=== PATIENT | male | born 1955 | race Caucasian/White ===

== ENCOUNTER 2017-02-22 08:06 | Day surgery (SDC) | payer OTHER ==
[~2017-02-22] VITALS: Ht 180.3 cm; Wt 118.1 kg
[2017-02-22] VITALS (9 sets, daily range): BP systolic 126–135; BP diastolic 63–91; PULSE 78–90; RESP 16–18; TEMP 97.3–98.2; O2SAT 94–96
[2017-02-22] MEDS ORDERED: NS 1000 ML IV SCH (08:30)
[2017-02-22] MEDS ORDERED: CHLORHEXIDINE GLUCONATE 2 % 1 PACK (2 CLOTHS) TOPICAL SCH (08:30)
[2017-02-22] MEDS ORDERED: ceFAZolin 2 GM PREMIX 50 ML IV SCH (08:30)
[2017-02-22] MEDS ORDERED: MUPIROCIN 2% OINT 1 APPLIC/GM SYR NASAL SCH (08:30)
[2017-02-22] MEDS ORDERED: POVIDONE IODINE 5% (ANTISEPSIS KIT) 4 APPLICATIONS EACH NARE SCH (08:30)
[2017-02-22] MEDS ORDERED: LORazepam 1 MG TAB SL SCH (08:30)
[2017-02-22] MEDS ORDERED: VANCOMYCIN 1000 MG/NS 250 ML IV SCH ×2 (08:30)
[2017-02-22 08:43] LABS: AUTOMATED NEUTROPHIL # 4.5 TH/MM3 (1.8-7.7); BASOPHIL # 0.1 TH/MM3 (0-0.2); BASOPHIL % 0.8 % (0.0-2.0); EOSINOPHIL # 0.3 TH/MM3 (0-0.4); EOSINOPHIL % 3.7 % (0.0-4.0); HEMATOCRIT 40.7 % (39.0-51.0); HEMO FLAGS DIFF FINAL; LYMPH % 34.6 % (9.0-44.0); LYMPHOCYTE # 2.8 TH/MM3 (1.0-4.8); MEAN CELL VOLUME 88.7 FL (80.0-100.0); MEAN CORPUSCULAR HEMOGLOBIN 29.6 PG (27.0-34.0); MEAN CORPUSCULAR HGB CONC 33.4 % (32.0-36.0); MONO % 6.1 % (0.0-8.0); NEUT % 54.8 % (16.0-70.0); PLATELET COUNT 218 TH/MM3 (150-450); RED BLOOD COUNT 4.59 MIL/MM3 (4.50-5.90); RED CELL DISTRIBUTION WIDTH 14.3 % (11.6-17.2); WHITE BLOOD COUNT 8.1 TH/MM3 (4.0-11.0)
[2017-02-22] MEDS ORDERED: SODIUM CHLORID 0.9% 500 ML IV PRN (08:45)
[2017-02-22] MEDS ORDERED: LACTATED RINGER'S 1000 ML IV PRN (08:45)
[2017-02-22] MEDS ORDERED: INSULIN HUMAN REGULAR 1,000 UNITS/10 ML VIAL SQ PRN (08:45)
[2017-02-22] MEDS ORDERED: CHLORHEXIDINE GLUCONATE 2 % 1 PACK (2 CLOTHS) TOPICAL PRN (08:45)
[2017-02-22] MEDS ORDERED: POVIDONE IODINE 5% (ANTISEPSIS KIT) 4 APPLICATIONS EACH NARE PRN (08:45)
[2017-02-22] MEDS ORDERED: METOPROLOL TARTRATE 25 MG TAB PO PRN (08:45)
[2017-02-22] MEDS ORDERED: CLOP75TA PO (08:53)
[2017-02-22] MEDS ORDERED: LORA1TAB12 PO (08:53)
[2017-02-22] MEDS ORDERED: CARV12.52 PO (08:53)
[2017-02-22] MEDS ORDERED: EZET1TAB8 PO (08:53)
[2017-02-22] MEDS ORDERED: LISI-515 PO (08:53)
[2017-02-22] MEDS ORDERED: GENT5TAB PO (08:53)
[2017-02-22] MEDS ORDERED: IPRA17I INH (08:53)
[2017-02-22] MEDS ORDERED: ASPI325T PO (08:53)
[2017-02-22] MEDS ORDERED: BUPR300T PO (08:53)
[2017-02-22] MEDS ORDERED: ATOR1TAB18 PO (08:53)
[2017-02-22 08:54] LABS: PROTHROMBIN TIME - PATIENT 10.7 SEC (9.8-11.6)
[2017-02-22] MEDS ORDERED: ZOLP10TA3 PO (08:56)
[2017-02-22] MEDS ORDERED: SACU1TAB PO (08:56)
[2017-02-22] MEDS ORDERED: ALBUAER3 INH (08:56)
[2017-02-22] MEDS ORDERED: VITATAB43 PO (08:56)
[2017-02-22] MEDS ORDERED: VITATAB11 PO (08:56)
[2017-02-22] MEDS ORDERED: VENL75TA2 PO (08:56)
[2017-02-22] MEDS ORDERED: RA BTAB (08:56)
[2017-02-22] MEDS ORDERED: VENL150C39 PO (08:56)
[2017-02-22 09:01] LABS: BICARBONATE 27.2 MEQ/L (21.0-32.0); POTASSIUM 4.1 MEQ/L (3.5-5.1)
[2017-02-22] MEDS ORDERED: PROPOFOL 200 MG/20 ML AMP ONE ×3 (14:07→15:49)
[2017-02-22] MEDS ORDERED: MIDAZOLAM HCL 2 MG/2 ML VIAL ONE (14:07)
[2017-02-22] MEDS ORDERED: LIDOCAINE HCL 2% 50 ML VIAL ONE (14:08)
[2017-02-22] MEDS ORDERED: HEPARIN-NS/PF INJ 1,000 ML ONE (14:08)
[2017-02-22] MEDS ORDERED: VANCOMYCIN 500 MG VIAL ONE (14:08)
[2017-02-22] MEDS ORDERED: ISOPROTERENOL HCL 1 MG/5 ML AMP ONE (14:09)
--- NOTE | 2017-02-22 14:58 | CATHPROC ---
[facility] HIS Report Study Information Study Number Admission Scheduled Start Study Start [id number] Feb 22 2017 8:06AM 02/22/2017 Feb 22 2017 1:00PM Thermal Service Cardiac Pacer/ICD Admit Source Facility Department Other [facility] - [facility] Hand Physician and Clinical Staff Initial Humphrey Damon Medical Coder Brandie Correia,RT(R) TECH2 Other Anesthesia, ORCHID HAND Recorder Yessenia Heck,Jos Laird,RT(R) Equipment Time Linseed Oil Order Filler Description Size Mfg Part Number Used/Scraped [id number] 14:37 [employer] MEDICAL CATHETER, JSN, QUAD FR 5 Used *[id number] 14:37 [employer] MEDICAL CATHETER, JSN, QUAD FR 5 Used *[id number] 14:37 [employer] MEDICAL CATHETER, JSN, QUAD FR 5 Used *[id number] 14:37 [employer] MEDICAL CATHETER, JSN, QUAD FR 5 Used *[id number] 14:37 [employer] MEDICAL SHEATH, EPS, FR5 FAST CATH FR 5 Used *[id number] [id number] 14:37 [employer] MEDICAL SHEATH, EPS, FR5 FAST CATH FR 5 Used *[id number] [id number] 14:37 [employer] MEDICAL SHEATH, EPS, FR5 FAST CATH FR 5 Used *[id number] [id number] 14:37 [employer] MEDICAL SHEATH, EPS, FR6 FAST CATH FR 6 Used *[id number] History: Allergies Allergy Reaction No Known Allergies History: Risk Factors Hypertension Dyslipidemia Previous OR Previous Heart Failure Yes Yes Yes Yes Prior CABG Yes Chronic Lung Disease Yes Labs Hgb (g/dl) Hct (%) RBC (MIL/MM3) WBC (l/cumm) Platelets (thousands) 11.60-17.00 35.00-51.00 4.00-5.90 4.00-11.00 150.00-450.00 13.0 40 4.5 8.1 218 Glucose (mg/dl) 74.00-106.00 170 Na (meq/l) K (meq/l) 136.00-145.00 3.50-5.10 139 4.1 INR (PTT:PT) 0.90-1.10 1 Medication Medication Total Dose (Bolus/Oral) Medication Total Dosage/Unit 1% XYLOCAINE 20 mL Medications (Bolus/Oral) Medication Time Given Dosage/Unit Administered By Reason 1% XYLOCAINE 02/22/2017 2:38:00 PM 20 mL Humphrey Toney 20 mL 1% XYLOCAINE given in lab by Humphrey Toney in Right Groin via Subcutaneous. Medication (Drip) Medication Time Given Dosage/Unit Concentration/Unit Diluent (ml) Solution ANCEF 02/22/2017 2:02:53 PM 2 g 2 g ANCEF given in lab by Yessenia Heck RN in Left Hand via Peripheral IV. Ordered by Yohan Toney. Reason: As per physicians verbal order. VANCOMYCIN DRIP 02/22/2017 2:02:54 PM 1 g 1 g VANCOMYCIN DRIP given in lab by Yessenia Heck RN in Left Hand via Peripheral IV. Ordered by Humphrey Mora. Reason: As per physicians verbal order. Initial Case Assessment Cardiovascular HR Rhythm NIBP Chest Pain 77 sr 124/81 0 Edema Present Skin color Skin None Normal Warm Dry Circulatory - Right Pulses Dorsalis Pedis Radial 2 2 Scale (0,1,2,3,4,d) Circulatory - Left Pulses Dorsalis Pedis Radial 2 2 Scale (0,1,2,3,4,d) Circulatory - Lower Extremities Color Lower Right Color Lower Left Normal Normal Neurological State Oriented to time-place- Alert Moves all extremities person Respiration - General Respiration Rate SpO2 (%) (B/min) 20 100 Chronological Log Time Study Chronological Log 13:35:48 Patient arrived via Bed. 13:35:49 Patient Name, D.O.B, / Armband Verified By R.N. 13:35:51 Consent signed by the physician and the patient and verified by the [facility] staff. 13:35:53 Pre-op and post- op instructions given; patient acknowledges understanding of instructions. 13:35:55 Verbal Stimulation=2 Physical Stimulation=2 Airway=2 Respiration=2 TOTAL=8. (0=absent, 1=li mited, 2=present) 13:36:07 Patient has been NPO for More than 6Hrs. 13:36:12 Skin Breakdown- none per pt 13:38:19 Patient Warmer Placed on the Table. 13:38:33 Disposable Defibrillator Pads Placed On Patient. 13:38:36 Eder Prominences Protected 13:39:03 History and physical on the chart or being dictated. 13:48:39 A # 20 IV was noted in the Antecubital (right). Grade = 0 0.9ns kvo 13:48:43 A # 20 IV was noted in the Hand (left). Grade = 0 0.9ns kvo 13:49:48 Table restraints applied according to hospital policy 14:00:38 Anesthesia at bedside. Assumes care of patient. Lazarus 2 g ANCEF given in lab by Yessenia Heck RN in Left Hand via Peripheral IV. Ordered by Humphrey Toney. Reason: As 14:02:53 per physicians verbal order. 1 g VANCOMYCIN DRIP given in lab by Yessenia Heck, JASON in Left Hand via Peripheral IV. Ordere d by Humphrey Toney. 14:02:54 Reason: As per physicians verbal order. Assessment: Initial Case, HR=77 BPM, Rhythm=sr, TAMN=233/81 mmhg, Chest Pain=0, Edema=None, Col or=Normal, Skin = Warm, Dry Right Pulses: Shola Ped=2, Radial=2 Left Pulses: Shola Ped=2, Radial=2 14:15:09 Lower Right Extremities: Color=Normal Lower Left Extremities: Color=Normal Neurological: State=Alert, Ox3, DOUGLAS Respiration: Resp=20 B/min, SuK2=438 % 14:20:02 Bilateral groins prepped with 2% chlorhexidine, and with a 3 min. waiting time. 14:24:56 MD paged 14:28:11 Reference ECG taken 14:32:45 MD arrived. Time Out. Correct patient, procedure, procedure equipment, site and side verified with physicia n present. Time 14:37:27 concurred by MD, individual staff and ORCHID HAND. Time Out #2 - Consents verified, patient in correct position, all results are labled and displa yed, safety precautions 14:37:45 taken, antibiotics administered. Time out concurred by MD, individual staff and ORCHID HAND in procedu re 14:37:59 Case Start 14:38:00 20 mL 1% XYLOCAINE given in lab by Humphrey Toney in Right Groin via Subcutaneous. 14:38:44 Vascular access was obtained in the Fem Vein (right). 14:38:46 Vascular access was obtained in the Fem Vein (right). 14:38:50 Vascular access was obtained in the Fem Vein (right). 14:38:53 Vascular access was obtained in the Fem Vein (right). 14:39:30 A SHEATH, EPS, FR5 FAST CATH FR 5 was advanced into the Fem Vein (right) using the Modified Seldinger technique. 14:39:37 A SHEATH, EPS, FR5 FAST CATH FR 5 was advanced into the Fem Vein (right) using the Modified Seldinger technique. 14:39:41 A SHEATH, EPS, FR5 FAST CATH FR 5 was advanced into the Fem Vein (right) using the Modified Seldinger technique. 14:39:47 A SHEATH, EPS, FR6 FAST CATH FR 6 was advanced into the Fem Vein (right) using the Modified Seldinger technique. A CATHETER, JSN, QUAD FR 5 was advanced vis Fem Vein (right) and placed in the CS. Placement wa s visually 14:41:51 confirmed under fluoroscopy. A CATHETER, JSN, QUAD FR 5 was advanced vis Fem Vein (right) and placed in the HIS. Placement w as visually 14:42:08 confirmed under fluoroscopy. A CATHETER, JSN, QUAD FR 5 was advanced vis Fem Vein (right) and placed in the RVA. Placement w as visually 14:42:12 confirmed under fluoroscopy. A CATHETER, JSN, QUAD FR 5 was advanced vis Fem Vein (right) and placed in the HRA. Placement w as visually 14:42:17 confirmed under fluoroscopy. 14:44:39 EPS in progress. 14:56:53 EPS complete. 14:57:14 Catheters removed without difficulty. 14:57:32 Sheath(s) left in place, secured, 0.9ns kvo connected and will be removed in Holding Area 14:57:56 Case End 14:57:58 No case complications noted. 14:57:59 Cine recording checked. 14:58:13 Initial procedure has been completed. Beginning additional procedure. 14:58:14 NOTE: This patient is undergoing an additional procedure while still in the Cardiac Cath La b. End Study - Contrast Media Used In Study Contrast Total Opened (mL) Total Used (mL) Total Wasted (mL) Unspecified 0 0 0 End Study - Radiation Exposure Fluoro Time (minutes) 1.8 End Study - Patient Disposition Complications Transferred To Interventional Outcome No [facility] C[facility] Hand Holding successful
--- NOTE | 2017-02-22 16:42 | CATHPROC ---
[facility] HIS Report Study Information Study Number Admission Scheduled Start Study Start [id number] Feb 22 2017 8:06AM 02/22/2017 Feb 22 2017 2:59PM [place] Service Electrophysiology Study Admit Source Facility Department Other [facility] - Sewer Pipe Layer Physician and Clinical Staff Initial Humphrey Damon Wirer Maintenance Jos Durbin,RT(R) Other Anesthesia, HULL DRAFTER Recorder Yessenia Heck,JASON Scrub Brandie Correia,RT(R) TECH2 Procedures Performed Procedure Location (Site) Vessel Name Lead Insertion Venogram Subclav. Vein (Lft Subclavian Vein Wire insertion Subclav. Vein (Lft Subclavian Vein Equipment Time Geodetic Computator Description Size Mfg Part Number Used/Scraped WIRE, GUIDE AMPLATZ STIFF [id number] 16:06 COOK/PACER 3MMJ Used 180CM *[id number] DERMABOND, ADHESIVE SKIN [id number] 15:02 CORDIS/PACER * Used GLUE MINI *[id number] WIRE, HYDROSTEER 150CM [id number] 15:51 DAIG/[employer]. J[employer] MEDICAL 150CM Used ANGLED GLIDE *[id number] ENDOVASCULAR CATHETER, FR5 TRAILBLAZER [id number] 16:12 90CM Used COMPANY .035 *[id number] TP-1103 15:02 Revelation SUTURE, STRIP PLUS 1/2" * Used *[id number] 15:02 Real Time Translation PACER ENRIQUE, LIMB * 2530 *[id number] Used [id number] 15:02 Real Time Translation PACER PACK, PACER CUSTOM * Used *[id number] 15:04 Playrific PACER SAFE SHEATH, FR9, 13CM FR 9 [id number] Used 15:16 Needle Sponge Count 2 22 Used 15:16 Needle Sponge Count 20 200 Used 15:16 Needle Sponge Count 3 3 Used 16:39 Needle Sponge Count 4 4 Used 16:39 Needle Sponge Count 4 4 Used 16:39 Needle Sponge Count 4 4 Used 15:46 NYCOMED OMNIPAQUE, 300 MG, 50ML 50ML [id number] Used 15:54 NYCOMED OMNIPAQUE, 300 MG, 50ML 50ML [id number] Used SUTURE, 0 ETHIBOND [CT1] (CX21D), 8pk SUTURE, 2-0 VICRYL [CT1] (COP400P) SUTURE, 2-0 VICRYL [CT1] (NTJ331S) [id number] 15:02 BETHEA [employer] BLANKET,WARM AIR CCL * Used *[id number] MedAdherence LASER SHEATH KIT 500-301 15:59 Spectranetics 50CM Used FR12 *[id number] 710587 15:51 [employer] MEDICAL SHEATH, EPS, FR5 FAST CATH FR 5 Used *[id number] [facility] PAD, ELECTROSURGICAL 15:02 * [id number] *[id number] Used SURGICAL GROUNDING ORANGE 16:22 VITATRON MEDTRONIC DEFIBRILLATOR, VISIA AF MRI VR [id number] [id number] Used LEAD, SPRINT QUATTRO SECURE [id number] 16:13 VITATRON MEDTRONIC 62CM Used S 62CM *[id number] 16:06 VITATRON MEDTRONIC SAFE SHEATH, LONG, FR9, 23CM FR 9 [id number] Used [id number] 15:02 [employer] CMOS Sensors MAYELIN. ELECTRODE, PRO-PADZ BIPHASIC * Used *[id number] Equipment Model, Serial, Lot Number and Expiration Data Description Model Number Serial Number Lot Number Expiration Date DEFIBRILLATOR, VISIA AF MRI VR [id number] 05-26-2018 LEAD, SPRINT QUATTRO SECURE S [id number] 11-03-2018 62CM SAFE SHEATH, LONG, FR9, 23CM [id number] 04-29-2018 WIRE, GUIDE AMPLATZ STIFF [id number] 12-28-2021 180CM WIRE, HYDROSTEER 150CM [id number] 11-26-2018 ANGLED GLIDE History: Allergies Allergy Reaction No Known Allergies Medication Medication Total Dose (Bolus/Oral) Medication Total Dosage/Unit 2% XYLOCAINE 50 mL Medications (Bolus/Oral) Medication Time Given Dosage/Unit Administered By Reason 2% XYLOCAINE 02/22/2017 3:40:49 PM 50 mL Humphrey Toney 50 mL 2% XYLOCAINE given in lab by Humphrey Toney in Left upper chestvia Subcutaneous. Final Case Assessment Cardiovascular HR Rhythm NIBP Chest Pain 90 sr 136/68 0 Edema Present Skin color Skin None Normal Warm Dry Circulatory - Right Pulses Dorsalis Pedis 3 Scale (0,1,2,3,4,d) Circulatory - Left Pulses Dorsalis Pedis 3 Scale (0,1,2,3,4,d) Circulatory - Lower Extremities Color Lower Right Color Lower Left Normal Normal Neurological State Oriented to time-place- Lethargic Moves all extremities person Respiration - General Respiration Rate SpO2 (%) O2 (lpm) (B/min) 18 92 6 Chronological Log Time Study Chronological Log 14:58:56 NOTE: This patient is undergoing an additional procedure while still in the Cardiac Cath La b. 14:59:00 Anesthesia remains at bedside. Assuming care of patient. 14:59:13 2% CHLORHEXIDINE GLUCONATE WASH AND NASAL SWIPE DONE PRIOR TO PROCEDURE. 14:59:17 Bovie ground pad applied to: right thigh 14:59:33 Upper Chest Prepped Times Two. 15:15:21 Reference ECG taken First Sponge And Instrument Count Done by Jos Durbin, RT(R). 15:15:31 Hypo's: 4, Sponges: 20, Bovie/scratch: 2 Sutures: 10, Blades: 1, Instruments: 26, Syveck Patches: 0 15:28:35 MD paged 15:29:40 MD responded 15:37:06 MD arrived. Time Out. Correct patient, procedure, procedure equipment, site and side verified with physicia n present. Time 15:40:00 concurred by MD, individual staff and HULL DRAFTER. Time Out #2 - Consents verified, patient in correct position, all results are labled and displa yed, safety precautions 15:40:21 taken, antibiotics administered. Time out concurred by MD, individual staff and HULL DRAFTER in procedu re 15:40:45 Case Start 15:40:49 50 mL 2% XYLOCAINE given in lab by Humphrey Toney in Left upper chestvia Subcutaneous. 15:42:15 Vascular access was obtained in the Subclav. Vein (Lft. 15:45:12 The Subclav. Vein (Lft was manually injected with 10 cc's of contrast. OMNIPAQUE, 300 MG, 5 0ML 50ML used. 15:49:00 Vascular access was obtained in the Subclav. Vein (Lft. 15:49:56 Wire inserted 15:53:32 A SHEATH, EPS, FR5 FAST CATH FR 5 was advanced into the Subclav. Vein (Lft using the Modifi ed Seldinger technique. 15:53:51 The Subclav. Vein (Lft was manually injected with 10 cc's of contrast. OMNIPAQUE, 300 MG, 5 0ML 50ML used. 15:55:11 The previous wire was exchanged for a WIRE, HYDROSTEER 150CM ANGLED GLIDE 150CM. 16:04:07 Amplatz in through trailblazer 16:04:08 A CATHETER, FR5 TRAILBLAZER .035 90CM was advanced over a wire. 16:04:47 A WIRE, GUIDE AMPLATZ STIFF 180CM 3MMJ was inserted via Subclav. Vein (Lft. 16:06:00 A SAFE SHEATH, LONG, FR9, 23CM FR 9 was advanced into the Subclav. Vein (Lft using the Perc utaneous technique. 16:06:27 Surgical Incision Made. 16:10:03 A pocket was created at the L Upper Chest. A SAFE SHEATH, LONG, FR9, 23CM FR 9 was advanced into the Subclav. Vein (Lft using the Modified Seldinger 16:10:12 technique. 16:13:05 A LEAD, SPRINT QUATTRO SECURE S 62CM 62CM was inserted and positioned in the RV. 16:21:00 Pocket flushed with antibiotic solution 16:22:02 A DEFIBRILLATOR, VISIA AF MRI VR VVEVVIR was connected and placed in the pocket. Second Sponge And Instrument Count Done by Jos Durbin RT(R). 16:25:50 Hypo's: 3, Sponges: 20, Bovie/scratch: 2 Sutures: 10, Blades: 1, Instruments: 26, Syveck Patches: 0 16:31:00 The DFT was ~RESULT~ at ~JOULES~ Joules, ~OHMS~ Ohms lead impedance and ~TIME~ ms charge ti me. Final Sponge And Instrument Count Done by Jos Durbin RT(R). 16:31:22 Hypo's: 3, Sponges: 20, Bovie/scratch: 2 Sutures: 10, Blades: 1, Instruments: 26, Syveck Patches: 0 16:32:00 The pocket was closed. 16:33:43 Implant Procedure was performed. 16:33:47 A ICD Implant . (Single) 16:37:57 Case End 16:39:01 Steri-strips and a sterile dressing applied to site. 16:39:08 No case complications noted. 16:39:09 Cine recording checked. 16:39:32 CICU called. Spoke to Cesia 16:39:56 Bedside Report will be given. 16:40:03 Defibrillator and ground pads removed. Skin intact. Assessment: Final Case, HR=90 BPM, Rhythm=sr, ZETG=943/68 mmhg, Chest Pain=0, Edema=None, Color =Normal, Skin = Warm, Dry Right Pulses: Shola Ped=3 Left Pulses: Shola Ped=3 16:40:13 Lower Right Extremities: Color=Normal Lower Left Extremities: Color=Normal Neurological: State=Lethargic, Ox3, DOUGLAS Respiration: Resp=18 B/min, SpO2=92 %, O2=6 lpm 16:47:17 Sheath(s) left in place, secured, 0.9ns kvo connected and will be removed in Holding Area 16:50:00 Patient moved to stretcher 16:51:36 A sling was placed on the affected arm. End Study - Contrast Media Used In Study Contrast Total Opened (mL) Total Used (mL) Total Wasted (mL) Omnipaque 100 40 60 End Study - Radiation Exposure Fluoro Time (minutes) 16.3 End Study - Patient Disposition Complications Transferred To Interventional Outcome No Telemetry Bed successful
[2017-02-22] MEDS ORDERED: ATROPINE SULFATE 1 MG/10 ML SYRINGE ONE (17:13)
[2017-02-22] MEDS ORDERED: ONDANSETRON HCL 4 MG/2 ML VIAL IV PUSH PRN (18:00)
[2017-02-22] MEDS ORDERED: BACITRACIN OINT 0.9 GM PKT TOP ONE (18:00)
[2017-02-22] MEDS ORDERED: SODIUM CHLOR 0.9% 250 ML INJ 250 ML IV PRN (18:00)
[2017-02-22] MEDS ORDERED: LIDOCAINE HCL 1% 50 ML VIAL INFIL PRN (18:00)
[2017-02-22] MEDS ORDERED: METOCLOPRAMIDE HCL 10 MG/2 ML VIAL IV PUSH PRN (18:00)
[2017-02-22] MEDS ORDERED: ATROPINE SULFATE 1 MG/ML VIAL IV PUSH PRN (18:00)
[2017-02-22] MEDS ORDERED: LORazepam 2 MG/ML VIAL IV PUSH PRN (18:00)
[2017-02-22] MEDS: oxyCODONE/ACETAMINOPHEN 5 MG/325 MG TAB PO PRN ×3 (18:28→23:41)
--- NOTE | 2017-02-22 18:53 | RADRPT ---
EXAM DATE/TIME: 02/22/2017 18:24 [place] COMPARISON: No previous studies available for comparison. INDICATIONS : Post op pacemaker. MEDICAL HISTORY : Chronic obstructive pulmonary disease. Hepatitis A. Hypertension. SURGICAL HISTORY : CABG. ENCOUNTER: Initial ACUITY: 1 day PAIN SCORE: 4/10 LOCATION: Bilateral chest FINDINGS: Trace atelectasis seen of the bases. No significant effusion demonstrated. No pneumothorax. Heart size upper limits of normal. Patient has had previous median sternotomy. There is a cardiac pac er. CONCLUSION: Trace basilar atelectasis. Emigdio Terrell MD on February 22, 2017 at 18:51 Board Certified Radiologist. This report was verified electronically.
[2017-02-22] MEDS: ceFAZolin 2 GM PREMIX 50 ML IV SCH (19:56)
[2017-02-22] MEDS ORDERED: ZOLPIDEM TARTRATE 10 MG TAB PO PRN (21:45)
[2017-02-22] MEDS ORDERED: LORazepam 1 MG TAB PO PRN (21:45)
[2017-02-23] VITALS (12 sets, daily range): BP systolic 128–146; BP diastolic 70–88; PULSE 79–96; RESP 12–18; TEMP 96.4–97.8; O2SAT 90–94
[2017-02-23] MEDS: ceFAZolin 2 GM PREMIX 50 ML IV SCH ×2 (02:14→10:39)
[2017-02-23] MEDS: oxyCODONE/ACETAMINOPHEN 5 MG/325 MG TAB PO PRN ×2 (06:19→10:51)
[2017-02-23] MEDS ORDERED: CEPH-460 PO (08:00)
--- NOTE | 2017-02-23 08:08 | PD.CARD.PN ---
Subjective Subjective Remarks Feels okay. Objective Medications Current Medications Medications (Trade) Dose Ordered Sig/Pranay Route Start Time Stop Time Status Last Admin (Ativan) 1 mg OVEN UNLOADER SL 02/22/17 08:30 02/25/17 08:29 (Betadine 5% Antisepsis Kit) 2 applic OVEN UNLOADER EACH NARE 02/22/17 08:30 02/25/17 08:29 (Percocet 5-325 Mg) 1 tab Q4H PRN PO 02/22/17 18:00 02/22/17 23:41 (Percocet 5-325 Mg) 2 tab Q4H PRN PO 02/22/17 18:00 02/23/17 06:19 (Ativan Inj) 0.5 mg UNSCH PRN IV PUSH 02/22/17 18:00 02/23/17 17:59 (Atropine Inj) 0.5 mg UNSCH PRN IV PUSH 02/22/17 18:00 Sodium Chloride 250 ml @ 500 mls/hr ONCE PRN IV 02/22/17 18:00 02/23/17 17:59 (Reglan Inj) 10 mg Q4H PRN IV PUSH 02/22/17 18:00 (Zofran Inj) 4 mg Q4H PRN IV PUSH 02/22/17 18:00 (Xylocaine 1% Inj (50 ml)) 10 ml UNSCH PRN INFIL 02/22/17 18:00 02/23/17 17:59 Cefazolin Sodium/ Dextrose 50 ml @ 100 mls/hr Q8H IV 02/22/17 18:00 02/23/17 10:29 02/23/17 02:14 (Pneumovax-23 Inj) 25 mcg ONCE ONCE IM 02/24/17 10:00 02/24/17 10:01 (Flu (Quadrivalent) Vaccine Inj) 0.5 ml ONCE ONCE IM 02/24/17 10:00 02/24/17 10:01 (Ativan) 1 mg BID PRN PO 02/22/17 21:45 02/22/17 22:09 (Ambien) 10 mg HS PRN PO 02/22/17 21:45 02/22/17 22:09 Vital Signs / I&O Vital Signs Date Time Temp Pulse Resp B/P (MAP) Pulse Ox O2 Delivery O2 Flow Rate FiO2 02/23/17 06:00 88 02/23/17 05:20 87 02/23/17 04:38 96 02/23/17 03:22 85 02/23/17 03:22 97.6 83 18 146/81 (102) 94 02/23/17 02:01 86 02/23/17 01:01 88 02/23/17 00:00 89 02/22/17 23:00 98.0 84 18 133/63 (86) 94 02/22/17 23:00 90 02/22/17 22:00 86 02/22/17 21:00 84 02/22/17 20:00 82 02/22/17 19:50 82 02/22/17 19:50 97.9 83 17 135/86 (102) 96 02/22/17 18:14 78 02/22/17 17:50 97.3 78 18 128/91 (103) 96 02/22/17 17:50 78 02/22/17 17:49 Nasal Cannula 3.00 02/22/17 17:16 97.9 80 16 127/79 (95) 95 02/22/17 08:15 98.2 85 17 126/79 (95) 94 I/O 02/22/17 02/22/17 02/22/17 02/23/17 02/23/17 02/23/17 07:00 15:00 23:00 07:00 15:00 23:00 Intake Total 0 ml 1000 ml Output Total 0 ml 800 ml Balance 0 ml 200 ml Intake Oral 0 ml 1000 ml Output Urine Total 0 ml 800 ml # Voids 1 Physical Exam GENERAL: Well-nourished, well-developed patient. SKIN: Warm and dry. Left chest wall incision well approximated without erythema or drainage. HEAD: Normocephalic. EYES: No scleral icterus. No injection or drainage. NECK: Supple, trachea midline. No JVD or lymphadenopathy. CARDIOVASCULAR: Regular rate and rhythm without murmurs, gallops, or rubs. RESPIRATORY: Breath sounds equal bilaterally. No accessory muscle use. GASTROINTESTINAL: Abdomen soft, non-tender, nondistended. EXTREMITIES: No cyanosis, or edema. NEUROLOGICAL: Awake, alert, and oriented x 3. Non-focal. Laboratory Laboratory Tests Test 02/22/17 08:30 White Blood Count 8.1 TH/MM3 Red Blood Count 4.59 MIL/MM3 Hemoglobin 13.6 GM/DL Hematocrit 40.7 % Mean Corpuscular Volume 88.7 FL Mean Corpuscular Hemoglobin 29.6 PG Mean Corpuscular Hemoglobin Concent 33.4 % Red Cell Distribution Width 14.3 % Platelet Count 218 TH/MM3 Mean Platelet Volume 9.2 FL Neutrophils (%) (Auto) 54.8 % Lymphocytes (%) (Auto) 34.6 % Monocytes (%) (Auto) 6.1 % Eosinophils (%) (Auto) 3.7 % Basophils (%) (Auto) 0.8 % Neutrophils # (Auto) 4.5 TH/MM3 Lymphocytes # (Auto) 2.8 TH/MM3 Monocytes # (Auto) 0.5 TH/MM3 Eosinophils # (Auto) 0.3 TH/MM3 Basophils # (Auto) 0.1 TH/MM3 CBC Comment DIFF FINAL Differential Comment Prothrombin Time 10.7 SEC Prothromb Time International Ratio 1.0 RATIO Activated Partial Thromboplast Time 24.0 SEC Blood Urea Nitrogen 9 MG/DL Creatinine 0.89 MG/DL Random Glucose 170 MG/DL Calcium Level 8.5 MG/DL Sodium Level 139 MEQ/L Potassium Level 4.1 MEQ/L Chloride Level 104 MEQ/L Carbon Dioxide Level 27.2 MEQ/L Anion Gap 8 MEQ/L Estimat Glomerular Filtration Rate 86 ML/MIN Imaging Last Impressions Chest X-Ray 02/22/17 0000 Signed Impressions: Service Date/Time: Wednesday, February 22, 2017 18:24 - CONCLUSION: Trace basilar atelectasis. Emigdio Terrell MD Assessment and Plan Problem List: (1) Cardiomyopathy ICD Codes: I42.9 - Cardiomyopathy, unspecified Plan: Medications optimized to include Lipitor, lisinopril, carvedilol, Zetia, Entresto. Stable for discharge home status post ICD implantation. (2) S/P ICD (internal cardiac defibrillator) procedure ICD Codes: Z95.810 - Presence of automatic (implantable) cardiac defibrillator Plan: Status post ICD implantation for sudden cardiac prevention. Incision clean, chest x-ray without pneumothorax. Discharge home, follow-up with Dr. Toney in 2 weeks per my discussion with him. Problem Qualifiers (1) Cardiomyopathy: Qualified Codes: I42.9 - Cardiomyopathy, unspecified Hetal Pickens Feb 23, 2017 08:08
--- NOTE | 2017-02-23 14:45 | EKG ---
Date Performed: 02/23/2017 Time Performed: 04:47:48 PTAGE: 61 years EKG: Sinus rhythm with PVC(s) Poor R wave progression - probable normal variant Inferior/lateral ST-T changes may be d ue to myocardial ischemia Mild IVCD Abnormal ECG PREVIOUS TRACING : 02/22/2017 18.33 Compared to prior tracing no significant change DOCTOR: Chris Choe Interpretating Date/Time 02/23/2017 14:44:22
--- NOTE | 2017-02-23 15:10 | EKG ---
Date Performed: 02/22/2017 Time Performed: 18:33:32 PTAGE: 61 years EKG: Sinus rhythm . Poor R wave progression - probable normal variant Inferior/lateral ST-T changes Abnormal ECG PREVIOUS TRACING : 02/22/2017 08.47 Compared to prior tracing no significant change DOCTOR: Chris Choe Interpretating Date/Time 02/23/2017 15:08:16
--- NOTE | 2017-02-23 15:45 | EKG ---
Date Performed: 02/22/2017 Time Performed: 08:47:46 PTAGE: 61 years EKG: Sinus rhythm . Incomplete LBBB Inferior/lateral ST-T changes Abnormal ECG NO PREVIOUS TRACING DOCTOR: Chris Choe Interpretating Date/Time 02/23/2017 15:43:49
[2017-02-24] MEDS ORDERED: INFLUENZA VIRUS VACCINE (QUADRIVALENT) 0.5 ML SYR IM ONE (10:00)
[2017-02-24] MEDS ORDERED: PNEUMOCOCCAL POLYVALENT INJ 25 MCG/0.5 ML SYR IM ONE (10:00)
--- NOTE | 2017-03-04 11:07 | PD.CARD ---
SINGLE CHAMBER DEFIB IMPLANT PROCEDURE DATE: Feb 22, 2017 NYHA Classification: Class III (Moderate) Prevention: Primary Single Chamber Defib Implant PROCEDURE: Single chamber defibrillator implantation and device testing. INDICATIONS: Mr. Walker is a 61 -year-old male with hx of CAD, CABG, congestive heart failure, on optimal medical management for over 3 months, ejection fraction 30%, who undergo defibrillator implantation for sudden primary prevention. The risks, the nature and the benefit of the procedure are clearly stated to him . Risks include pneumothorax, cardiac perforation, stroke and even . He understood and agreed to proceed. PROCEDURE: As written, informed consent was obtained prior to the electrophysiology study, the patient was kept on the table where he was prepped and draped in the sterile fashion. Conscious sedation was initiated and maintained throughout the procedure by anesthesiologist. Once sedation was verified, the left infraclavicular area was anesthetized with 2% Xylocaine. Using modified Seldinger technique, the left subclavian vein was cannulated on one occasion and one guide wire was advanced. Then, using #11 blade scalpel, a 3-cm incision was made two fingerbreadths below left clavicle. This incision was then taken down to the deep fascial layer using Bovie cautery and blunt dissection. Into the inferomedial direction, a device pocket was dissected, then the wire was dissected into the pocket. A 2-0 Vicryl suture was placed around the wires to prevent bleeding. At this point, over the wire, the 9- Nigerien dilator and introducer was advanced. As dilator and wire were removed, an active fixation right ventricular pacing, sensing and defibrillatory lead was advanced. After adequate pacing and sensing thresholds were obtained, the lead was secured in the pocket with #2 Ethibond suture. At that point, the pocket was copiously irrigated with antibiotic solution. The leads were connected to the generator and placed into the pocket. Nips was not performed. I did proceed with wound closure. The deep fascial layer was approximated with 2-0 Vicryl suture in a continuous fashion. The subcutaneous layer was approximated with 2-0 Vicryl suture in a continuous fashion. The subcuticular layer was approximated with 2-0 Vicryl suture in a continuous fashion. Dermabond adhesive was applied to the wound, followed by a sterile pressure dressing. There was no complication. The patient tolerated procedure. Blood loss minimal. 1. Implanted Hardware: The implanted defibrillator generator is a Medtronic, model number [id number], serial number [id number]. The right ventricular pacing, sensing and defibrillatory lead is a Medtronic model number 6935-62, serial number [id number]. 2. Thresholds: The right ventricular pacing threshold in the bipolar mode was 0.75volts at 0.5 milliseconds, lead impedance 513 ohms and R-wave at 5.9 mV. 3. Settings: The device set in 40 defibrillatory portion for two zones, one zone for ventricular tachycardia between 170 and 250 beats per minute. Initial therapy consists of one burst of ATP, one ramp, 81%, 10 pulse, 10 millisecond decremental, followed by 20, then 25 and all subsequent shocks at 35 joules defibrillatory shock, the second zone for ventricular fibrillation above 250beats per minute, first therapy at 25 and all subsequent shocks at 35 joules defibrillatory shock. CONCLUSIONS: Successful defibrillator implantation. COMMENT AND RECOMMENDATIONS: The patient will be transferred to the telemetry unit, will be observed and when stable can be discharged home. Humphrey Toney MD Mar 04, 2017 11:06
--- NOTE | 2017-03-04 11:15 | PD.CARD ---
ELECTROPHYSIOLOGY STUDY ELECTROPHYSIOLOGY STUDY NOTE PROCEDURE Electrophysiology study, coronary sinus cannulation, repeat electrophysiology on isuprel infusion HISTORY Mr. Walker is a 61 -year-old male with hx of CAD, CABG, congestive heart failure, ejection fraction 30% referred for electrophysiology study and defibrillator implantation for sudden prevention. The risks, the nature and the benefit of the procedure are clearly stated tohim . Risks include pneumothorax, cardiac perforation, stroke and even . He understood and agreed to proceed. PROCEDURE NOTE After written informed consent was obtained, the patient was brought to the EP lab where he was prepped and draped in the usual sterile fashion. Conscious sedation was initiated and maintained throughout the procedure by anesthesiologist. Once sedation was verified, the right inguinal area was anesthetized with 2% Xylocaine. Using modified Seldinger technique, the right femoral vein was cannulated on four occasions and four guidewires were advanced. Then, over the wires three 5 Serbian and 0ne 6 Serbian Hemaquets were advanced. Then, under fluoroscopic guidance through the 5 and 6 Serbian Hemaquet four 5 Serbian Kleber curved quadripolar electrophysiology catheters were advanced and positioned along the His, upper right atrium and coronary sinus and right ventricular apex Atrial pacing protocol was performed. atrial pacing protocol consisted in incremental atrial pacing and programmed stimulation using one drive train cycle length and one extra stimuli delivered. No tachy was induced. Ventricular pacing protocol was performed. No tachy was induced. Isuprel infusion was initiated. Ventricular pacing protocol was discontinued due to low blood pressure. At that point, procedure was complete. All catheters and Hemaquet were removed. The patient will be kept on the table and a single chamber defibrillator will be implanted for sudden prevention. No incident reported. The patient tolerated the procedure. Blood loss minimal. IMPRESSION 1. Electrocardiogram: At baseline the patient was in sinus rhythm. Post- procedure electrocardiogram was unchanged. 2. Basic Interval: The basic cycle length was around 790 milliseconds. AH 100 and H-V was around 55 milliseconds. 3. Ventricular Pacing Protocol: No tachyarrhythmia was induced. CONCLUSIONS Negative electrophysiology for supra and ventricular tachyarrhythmia. COMMENT AND RECOMMENDATION The patient will be kept on the table and single chamber defibrillator will be implanted for sudden primary prevention. Humphrey Toney MD Mar 04, 2017 11:15
== END 2017-02-23 14:50 | disposition home or self-care (01) ==
LOC: HDIC 08:06 → HCAT 08:06 → HCIS 17:07 → HCAT 02-23 14:50
PROVIDERS: ATTEND Internal Medicine Interventional Cardiology
DX: I50.9 Heart failure, unspecified (principal); I42.0 Dilated cardiomyopathy; R06.00 Dyspnea, unspecified; I10 Essential (primary) hypertension; F17.210 Nicotine dependence, cigarettes, uncomplicated; E78.5 Hyperlipidemia, unspecified; Z79.82 Long term (current) use of aspirin; Z82.49 Family history of ischemic heart disease and other diseases of the circulatory system
CPT/HCPCS: 00530; 33249; 71010; 80048; 85025; 85610; 85730; 86850; 86900; 86901; 93005; 93620; C1722; C1730; C1777; J0690; J1644; J2250; J3010; J3370; J0461